=== PATIENT | female | born 1970 | race American Indian/Alaskan Native ===

== ENCOUNTER 2017-12-11 18:48 | Emergency (ER) | payer SELFPAY ==
[2017-12-11 19:31] VITALS: BP 130/85
--- NOTE | 2017-12-11 20:20 | Emergency Department Report ---
ED Extremity Problem HPI - General Chief complaint: Extremity Injury, Upper Stated complaint: LEFT SHOULDER PAIN Time Seen by Provider: 12/11/17 20:06 Source: patient Mode of arrival: Ambulatory Limitations: No Limitations - History of Present Illness Initial comments: Patient is a 47-year-old black female said 2-3 weeks of pain in the left shoulder. Patient states that she does not remember any trauma. Says progressively worse today hurts worse when she is moving. Patient states aching pain 8 out of 10 at its height. Patient denies any fevers chills nausea vomiting cough deformity at this time. - Related Data Previous Rx's Medication Instructions Recorded Last Taken Type Gentamicin 0.3% Ophth Soln 2 drops OP Q4H #1 bottle 04/23/14 Unknown Rx HYDROcodone/APAP 5-325 [[place] 1 each PO Q6HR PRN #12 tablet 12/11/17 Unknown Rx 5/325] Ibuprofen [Motrin] 800 mg PO Q8HR PRN #20 tablet 12/11/17 Unknown Rx methOCARBAMOL [Robaxin TAB] 500 mg PO Q6H PRN #15 tablet 12/11/17 Unknown Rx Allergies Allergy/AdvReac Type Severity Reaction Status Date / Time aspirin Allergy Vomiting Verified 04/23/14 18:20 ED Review of Systems ROS: Stated complaint: LEFT SHOULDER PAIN Other details as noted in HPI Comment: All other systems reviewed and negative ED Past Medical Hx - Past Medical History Previous Medical History?: Yes Hx Headaches / Migraines: Yes Additional medical history: denies - Surgical History Past Surgical History?: No - Social History Smoking Status: Current Every Day Smoker Substance Use Type: Alcohol, Marijuana - Medications Home Medications: Home Medications Medication Instructions Recorded Confirmed Last Taken Type Gentamicin 0.3% Ophth Soln 2 drops OP Q4H #1 bottle 04/23/14 Unknown Rx HYDROcodone/APAP 5-325 [[place] 1 each PO Q6HR PRN #12 tablet 12/11/17 Unknown Rx 5/325] Ibuprofen [Motrin] 800 mg PO Q8HR PRN #20 tablet 12/11/17 Unknown Rx methOCARBAMOL [Robaxin TAB] 500 mg PO Q6H PRN #15 tablet 12/11/17 Unknown Rx ED Physical Exam - General Limitations: No Limitations General appearance: alert, in no apparent distress - Head Head exam: Present: atraumatic, normocephalic - Eye Eye exam: Present: normal appearance - ENT ENT exam: Present: mucous membranes moist - Neck Neck exam: Present: normal inspection - Respiratory Respiratory exam: Present: normal lung sounds bilaterally. Absent: respiratory distress - Cardiovascular Cardiovascular Exam: Present: regular rate, normal rhythm. Absent: systolic murmur, diastolic murmur, rubs, gallop - GI/Abdominal GI/Abdominal exam: Present: soft, normal bowel sounds - Extremities Exam Extremities exam: Present: normal inspection. Absent: full ROM (decreased range of motion secondary to pain), tenderness - Back Exam Back exam: Present: normal inspection - Neurological Exam Neurological exam: Present: alert, oriented X3 - Psychiatric Psychiatric exam: Present: normal affect, normal mood - Skin Skin exam: Present: warm, dry, intact, normal color. Absent: rash ED Course Vital Signs 12/11/17 19:28 Temperature 98.7 F Pulse Rate 72 Respiratory 17 Rate Blood Pressure 130/85 O2 Sat by Pulse 100 Oximetry ED Medical Decision Making - Radiology Data Radiology results: image reviewed Within normal limits - Medical Decision Making Patient is a 47-year-old black female who is presenting with pain in her left shoulder. X-rays are within normal limits. Patient most likely has some pain strains of the rotator cuff she can remain in a sling, given pain meds and muscle relaxants and follow Dr. Rico orthopedics Critical care attestation.: If time is entered above; I have spent that time in minutes in the direct care of this critically ill patient, excluding procedure time. ED Disposition Clinical Impression: Rotator cuff disorder Qualifiers: Laterality: left Qualified Code(s): M67.912 - Unspecified disorder of synovium and tendon, left shoulder Disposition: - TO HOME OR SELFCARE Is pt being admited?: No Does the pt Need Aspirin: No Condition: Stable Instructions: Rotator Cuff Injury (ED), RICE Therapy (ED) Prescriptions: HYDROcodone/APAP 5-325 [[place] 5/325] 1 each PO Q6HR PRN #12 tablet PRN Reason: Pain Ibuprofen [Motrin] 800 mg PO Q8HR PRN #20 tablet PRN Reason: Pain methOCARBAMOL [Robaxin TAB] 500 mg PO Q6H PRN #15 tablet PRN Reason: Pain Referrals: PHYLLIS RICO MD [Staff Physician] - 3-5 Days
--- NOTE | 2017-12-11 21:54 | XRay Report ---
FINAL REPORT PROCEDURE: XR SHOULDER 2+V LT TECHNIQUE: Left shoulder, three views HISTORY: shoulder pain COMPARISON: No prior studies are available for comparison. FINDINGS: No acute fracture or dislocation is seen. No focal osseous lesion. IMPRESSION: No acute abnormality is identified
== END 2017-12-11 20:45 | disposition home or self-care (01) ==
LOC: ED 18:48
DX: M75.102 Unspecified rotator cuff tear or rupture of left shoulder, not specified as traumatic (principal); G43.909 Migraine, unspecified, not intractable, without status migrainosus; F17.200 Nicotine dependence, unspecified, uncomplicated; F12.10 Cannabis abuse, uncomplicated; Z88.6 Allergy status to analgesic agent
CPT/HCPCS: 99283

== ENCOUNTER 2018-05-31 00:01 | Emergency (ER) | payer SELFPAY ==
[2018-05-31 01:19] LABS: Basophils # (Auto) 0.1 K/mm3 (0.0-0.1); Basophils % (Auto) 0.8 % (0.0-1.8); Eosinophils # (Auto) 0.2 K/mm3 (0.0-0.4); Eosinophils % (Auto) 1.9 % (0.0-4.3); Hematocrit 41.8 % (30.3-42.9); Hemoglobin 14.2 gm/dl (10.1-14.3); Lymphocytes # (Auto) 1.6 K/mm3 (1.2-5.4); Lymphocytes % (Auto) 16.9 % (13.4-35.0); Mean Corpuscular HGB Conc 34 % (30-34); Mean Corpuscular Hemoglobin 32 pg (28-32); Mean Corpuscular Volume 93 fl (79-97); Monocytes # (Auto) 0.5 K/mm3 (0.0-0.8); Monocytes % (Auto) 5.5 % (0.0-7.3); Platelet Count 250 K/mm3 (140-440); Red Blood Count 4.52 M/mm3 (3.65-5.03); Red Cell Distribution Width 13.4 % (13.2-15.2)
[2018-05-31 01:38] LABS: Calcium 9.5 mg/dL (8.4-10.2)
--- NOTE | 2018-05-31 02:47 | XRay Report ---
FINAL REPORT EXAM: XR CHEST ROUTINE 2V HISTORY: Shortness of breath TECHNIQUE: 2 views of the chest. PRIORS: None. FINDINGS: The cardiomediastinal silhouette appears normal. The lungs are clear. The bones and soft tissues are unremarkable. IMPRESSION: No evidence of acute cardiopulmonary disease
[2018-05-31] MEDS ORDERED: MUCINEX ER PO ONE (04:16)
[2018-05-31] MEDS ORDERED: TESSALON PERLES PO ONE (04:16)
[2018-05-31] MEDS ORDERED: TYLENOL PO ONE (04:17)
[2018-05-31 05:42] VITALS: BP 121/86
--- NOTE | 2018-05-31 05:54 | Emergency Department Report ---
HPI - General Chief Complaint: Dyspnea/Respdistress Time Seen by Provider: 05/31/18 05:31 - HPI HPI: The patient is a 48-year-old female who presents for evaluation of cough and thoracic pain. The patient reports 2-3 days of a productive cough and generalized aching in quality pain to the back, moderate in severity, exacerbated with coughing. She also has secondary complaint of right eye redness and watery drainage also for the past 2 days. The patient denies fever, neck pain, trauma to the right eye, blurry vision, purulent drainage or discharge from the eye, nose, or ear, parasthesias, chest pain, dyspnea, hemoptysis, palpitations, dizziness, syncope, unilateral leg swelling, calf muscle pain. She admits to daily tobacco use. ED Past Medical Hx - Past Medical History Previous Medical History?: No Hx Headaches / Migraines: Yes Additional medical history: denies - Surgical History Past Surgical History?: No - Social History Smoking Status: Current Every Day Smoker Substance Use Type: None - Medications Home Medications: Home Medications Medication Instructions Recorded Confirmed Last Taken Type Gentamicin 0.3% Ophth Soln 2 drops OP Q4H #1 bottle 04/23/14 Unknown Rx HYDROcodone/APAP 5-325 [[place] 1 each PO Q6HR PRN #12 tablet 12/11/17 Unknown Rx 5/325] Ibuprofen [Motrin] 800 mg PO Q8HR PRN #20 tablet 12/11/17 Unknown Rx methOCARBAMOL [Robaxin TAB] 500 mg PO Q6H PRN #15 tablet 12/11/17 Unknown Rx ALBUTEROL Inhaler [ProAir HFA 2 puff IH QID PRN #1 inhalation 05/31/18 Unknown Rx Inhaler] Azithromycin [Zithromax Z-BENJAMIN] 250 mg PO QDAY #6 tablet 05/31/18 Unknown Rx Benzonatate [Tessalon Perles] 100 mg PO Q8HR #30 capsule 05/31/18 Unknown Rx Ibuprofen [Motrin] 800 mg PO Q8HR PRN #15 tablet 05/31/18 Unknown Rx guaiFENesin [Mucinex] 600 mg PO BID PRN #20 tab.er.12h 05/31/18 Unknown Rx traMADol [Ultram 50 MG tab] 50 mg PO Q6HR PRN #12 tablet 08/23/18 Unknown Rx ED Review of Systems ROS: Stated complaint: EYE INFECTION, BODY PAIN, CONGESTION Other details as noted in HPI Constitutional: denies: fever ENT: denies: throat or neck pain Respiratory: reports cough denies shortness of breath Cardiovascular: denies: chest pain Endocrine: denies unexplained weight loss or gain Gastrointestinal: denies: abdominal pain, nausea Genitourinary: denies: dysuria Musculoskeletal: denies: leg swelling Skin: denies: rash Neurological: denies: headache Hematological/Lymphatic: denies: easy bleeding or easy bruising Psych: denies sadness or hopelessness Physical Exam - Physical Exam Vital Signs: Vital Signs 05/31/18 05/31/18 05/31/18 00:12 00:56 05:42 Temperature 99.5 F 99.5 F 98 F Pulse Rate 101 H 101 H 105 H Respiratory 20 16 18 Rate Blood Pressure 135/94 135/94 Blood Pressure 121/86 [Left] O2 Sat by Pulse 96 97 98 Oximetry Physical Exam: General: well-nourished, well-developed, no acute distress Head: Normocephalic, atraumatic Eyes: conjunctival injection present to the right eye, EOMI, PERRL, no periorbital redness, swelling to my no proptosis, no exophthalmos, no pain with extraocular movements, no hypopyon or hyphema ENT: Mucous membranes are pale and dry Neck: trachea midline, neck supple, No neck stiffness, no cervical adenopathy Respiratory: Breath sounds equal bilaterally, no wheezing, rales, or rhonchi Cardio: S1 and S2 present, no murmurs, rubs, gallops, capillary refill is delayed Abdomen: Normoactive bowel sounds, soft abdomen, no rigidity, no guarding or rebound tenderness Chest WALL/Back: No tenderness to palpation of the chest wall, no CVA tenderness with percussion Musc: No midline cervical, thoracic or lumbar spinous process tenderness to palpation present, no spinous step-off or obvious deformity Skin: No rash Neuro: no facial drooping, normal speech Psych: Normal affect ED Course Vital Signs 05/31/18 05/31/18 05/31/18 00:12 00:56 05:42 Temperature 99.5 F 99.5 F 98 F Pulse Rate 101 H 101 H 105 H Respiratory 20 16 18 Rate Blood Pressure 135/94 135/94 Blood Pressure 121/86 [Left] O2 Sat by Pulse 96 97 98 Oximetry ED Medical Decision Making - Lab Data Result diagrams: 05/31/18 01:06 05/31/18 01:06 - Medical Decision Making The patient was seen and examined by myself. The patient is placed on a manager monitoring and continuous pulse ox. On initial evaluation, the patient was found to be in no distress. Evaluation orders were placed. EKG was negative for findings suggestive of acute cardiac infarct. The patient is given Tessalon Perles for their cough and Mucinex for nasal congestion. The patient is given Tylenol and Motrin for her pain, and a tablet of azithromycin for treatment of suspected bronchitis. Lab results were not concerning. Chest x- ray is negative for pulmonary vessel congestion, pleural effusion, focal consolidation, or other acute cardio pulmonary disease process. The patient was reevaluated and reported that their symptoms were improved. On reexamination the patient is found to have normal respiratory rate and O2 sat on pulse oximetry, with no costal retractions or diminishment of breath sounds on auscultation. The patient is stable for discharge with outpatient follow-up. The patient is given follow-up and return instructions. The patient expressed understanding and agreed with the plan. The patient is discharged in stable condition. Critical care attestation.: If time is entered above; I have spent that time in minutes in the direct care of this critically ill patient, excluding procedure time. ED Disposition Clinical Impression: Mild dehydration, Myalgia, Acute viral syndrome, Sang[place] eye disease of right eye Acute bronchitis Qualifiers: Bronchitis organism: unspecified organism Qualified Code(s): J20.9 - Acute bronchitis, unspecified Disposition: - TO HOME OR SELFCARE Is pt being admited?: No Does the pt Need Aspirin: No Condition: Stable Instructions: Acute Bronchitis (ED), Conjunctivitis (ED), Musculoskeletal Pain (ED) Referrals: PRIMARY CARE, [Primary Care Provider] - 3-5 Days [facility] [Outside] - 3-5 Days Time of Disposition: 05:58
[2018-05-31] MEDS ORDERED: ZITHROMAX PO ONE (05:59)
[2018-05-31] MEDS ORDERED: MOTRIN PO ONE (05:59)
== END 2018-05-31 06:28 | disposition home or self-care (01) ==
LOC: ED 00:01
DX: J20.9 Acute bronchitis, unspecified (principal); B34.9 Viral infection, unspecified; E86.0 Dehydration; H10.021 Other mucopurulent conjunctivitis, right eye; G43.909 Migraine, unspecified, not intractable, without status migrainosus; F17.200 Nicotine dependence, unspecified, uncomplicated; Z88.6 Allergy status to analgesic agent
CPT/HCPCS: 36415; 71046; 80048; 85025; 93005; 93010; 99284

== ENCOUNTER 2019-11-18 14:48 | Emergency (ER) | payer SELFPAY ==
[2019-11-18 15:05] VITALS: BP 158/104
--- NOTE | 2019-11-18 15:14 | Emergency Department Report ---
Blank Doc - Documentation Documentation: 49-year-old female that presents with SOB, dizziness, and tingling body aches. Denies any CP. This initial assessment/diagnostic orders/clinical plan/treatment(s) is/are subject to change based on patient's health status, clinical progression and re- assessment by fellow clinical providers in the ED. Further treatment and workup at subsequent clinical providers discretion. Patient/guardians urged not to elope from the ED as their condition may be serious if not clinically assessed and managed. Initial orders include: 1- Patient sent to [facility] for further evaluation and treatment 2- labs 3- EKG 4- CXR
[2019-11-18 15:57] LABS: Mean Corpuscular HGB Conc 34 % (30-34); Mean Corpuscular Volume 93 fl (79-97); Platelet Count 235 K/mm3 (140-440); Red Blood Count 4.42 M/mm3 (3.65-5.03); Red Cell Distribution Width 13.5 % (13.2-15.2)
[2019-11-18 16:06] LABS: INR 0.94 (0.87-1.13)
[2019-11-18 16:07] LABS: Partial Thromboplastin Time 25.9 Sec. (24.2-36.6)
[2019-11-18 16:17] LABS: Alanine Aminotransferase 38 units/L (7-56); Albumin 4.4 g/dL (3.9-5); BUN/Creatinine Ratio 12; Blood Urea Nitrogen 15 mg/dL (7-17); Calcium 9.6 mg/dL (8.4-10.2); Hemolysis Index 47
--- NOTE | 2019-11-18 16:38 | XRay Report ---
CHEST 2 VIEWS INDICATION / CLINICAL INFORMATION: Chest Pain. COMPARISON: 05/31/2018 FINDINGS: SUPPORT DEVICES: None. HEART / MEDIASTINUM: No significant abnormality. LUNGS / PLEURA: No significant pulmonary or pleural abnormality. .No pneumothorax. ADDITIONAL FINDINGS: No significant additional findings. IMPRESSION: 1. No acute findings. Signer Name: Tomi Tatum MD Signed: 11/18/2019 4:34 PM Workstation Name: [id number]
[2019-11-18 17:14] LABS: RBC Morphology Normal; Total Cells Counted 100
[2019-11-18] MEDS ORDERED: methylPREDNISolone Sod Succinate 125 MG/2 ML INJ IV ONE (20:05)
[2019-11-18] MEDS ORDERED: SODIUM CHLORIDE 0.9% 1000 ML 1,000 ML IV ONE (20:05)
[2019-11-18] MEDS ORDERED: IPRATROPIUM/ALBUTEROL SULFATE 3 ML AMPUL.NEB IH ONE (20:05)
[2019-11-18 21:46] LABS: Bilirubin,Urine NEG (Negative); Blood,Urine NEG (Negative); Color,Urine Yellow (Yellow); Mucus,Urine FEW /HPF; Protein,Urine <15 mg/dL mg/dL (Negative); Urobilinogen,Urine < 2.0 mg/dL (<2.0)
--- NOTE | 2019-11-18 23:20 | Cat Scan Report ---
CTA of the chest with 3D Reconstruction Indication: ,chest pain, dyspnea Technique: TECHNIQUE: Axial CT images were obtained through the chest after injection of 80 cc of Omnipaque 350 IV contrast. 3 plane MIP reconstructions were produced. All CT scans at this location are performed u sing CT dose reduction for ALARA by means of automated exposure control. COMPARISON: None Automatic exposure control was utilized in an attempt to reduce radiation dose. Findings: Pulmonary arteries: The main pulmonary artery and right and left pulmonary artery branches fill satis factorily with contrast. No pulmonary embolus is seen. Lungs: The lungs are clear. Mediastinum: Heart size is normal. No adenopathy is seen. Aorta: Normal in diameter. No dissection seen within limits of this exam. Impression: No pulmonary embolus is seen Signer Name: Tomi Tatum MD Signed: 11/18/2019 11:15 PM Workstation Name: [id number]
--- NOTE | 2019-11-18 23:54 | Emergency Department Report ---
ED General Adult HPI - General Chief complaint: Dyspnea/Respdistress Stated complaint: SOB FAINTNESS Time Seen by Provider: 11/18/19 15:12 Source: patient Mode of arrival: Ambulatory Limitations: No Limitations - History of Present Illness Initial comments: Patient is a 49-year-old -[place] female with past medical history of chronic migraine headaches who presents to the ED with complaint of acute onset persistent nasal and sinus congestion, frontal sinus pressure, lightheadedness, shortness of breath, generalized weakness and fatigue with persistent dry cough and pleuritic chest wall pain for the last 2 days. Patient denies fever, chill s, nausea, vomiting, diarrhea, abdominal pain, dizziness, change in vision, sore throat or syncope and palpitations. MD Complaint: generalized weakness; lightheadedness; dyspnea; frontal sinus pressure -: Sudden, days(s) (2) Location: head, chest Radiation: non-radiation Severity scale (0 -10): 4 Quality: other (pressure) Consistency: intermittent Improves with: none Worsens with: movement Associated Symptoms: denies other symptoms, chest pain (pressure), cough, shortness of breath. denies: confusion, diaphoresis, fever/chills, headaches, loss of appetite, malaise, nausea/vomiting, seizure, syncope, weakness Treatments Prior to Arrival: none - Related Data Previous Rx's Medication Instructions Recorded Last Taken Type Gentamicin 0.3% Ophth Soln 2 drops OP Q4H #1 bottle 04/23/14 Unknown Rx HYDROcodone/APAP 5-325 [[place] 1 each PO Q6HR PRN #12 tablet 12/11/17 Unknown Rx 5/325] Ibuprofen [Motrin] 800 mg PO Q8HR PRN #20 tablet 12/11/17 Unknown Rx methOCARBAMOL [Robaxin TAB] 500 mg PO Q6H PRN #15 tablet 12/11/17 Unknown Rx Albuterol INH(or & Nicu Only) 2 puff IH QID PRN #1 inhalation 05/31/18 Unknown Rx [ProAir HFA Inhaler] Azithromycin [Zithromax Z-BENJAMIN] 250 mg PO QDAY #6 tablet 05/31/18 Unknown Rx Benzonatate [Tessalon Perles] 100 mg PO Q8HR #30 capsule 05/31/18 Unknown Rx Ibuprofen [Motrin] 800 mg PO Q8HR PRN #15 tablet 05/31/18 Unknown Rx Ofloxacin [Ocuflox 0.3%] 1 - 2 drop OP QID #1 bottle 05/31/18 Unknown Rx guaiFENesin [Mucinex] 600 mg PO BID PRN #20 tab.er.12h 05/31/18 Unknown Rx levoFLOXacin [Levaquin TAB] 500 mg PO QDAY #10 tablet 05/31/18 Unknown Rx traMADoL [Ultram 50 MG tab] 50 mg PO Q6HR PRN #12 tablet 05/31/18 Unknown Rx Albuterol INH(or & Nicu Only) 1 - 2 puff IH Q6H PRN #1 inh 11/18/19 Unknown Rx [ProAir HFA Inhaler] Doxycycline Hyclate 100 mg PO Q12H #20 tablet.dr 11/18/19 Unknown Rx hydrOXYzine HCL [Atarax] 25 mg PO Q6HR PRN #30 tablet 11/18/19 Unknown Rx methylPREDNISolone [Medrol 4MG 4 mg PO DAILY #21 tab.ds.pk 11/18/19 Unknown Rx DOSEPAK (21 tabs)] Allergies Allergy/AdvReac Type Severity Reaction Status Date / Time aspirin Allergy Vomiting Verified 04/23/14 18:20 ED Review of Systems ROS: Stated complaint: SOB FAINTNESS Other details as noted in HPI Constitutional: malaise, weakness. denies: chills, fever Eyes: denies: eye pain, eye discharge, vision change ENT: congestion, other (Sinus pressure). denies: ear pain, throat pain Respiratory: cough, shortness of breath. denies: wheezing Cardiovascular: chest pain (Pleuritic chest pain). denies: palpitations, dy spnea on exertion, syncope, paroxysmal nocturnal dyspnea Endocrine: no symptoms reported Gastrointestinal: denies: abdominal pain, nausea, vomiting, diarrhea Genitourinary: denies: urgency, dysuria, discharge Musculoskeletal: myalgia. denies: back pain, joint swelling, arthralgia Skin: denies: rash, lesions Neurological: headache. denies: weakness, paresthesias Psychiatric: denies: anxiety, depression Hematological/Lymphatic: denies: easy bleeding, easy bruising ED Past Medical Hx - Past Medical History Hx Headaches / Migraines: Yes Additional medical history: denies - Social History Smoking Status: Never Smoker Substance Use Type: None - Medications Home Medications: Home Medications Medication Instructions Recorded Confirmed Last Taken Type Gentamicin 0.3% Ophth Soln 2 drops OP Q4H #1 bottle 04/23/14 Unknown Rx HYDROcodone/APAP 5-325 [[place] 1 each PO Q6HR PRN #12 tablet 12/11/17 Unknown Rx 5/325] Ibuprofen [Motrin] 800 mg PO Q8HR PRN #20 tablet 12/11/17 Unknown Rx methOCARBAMOL [Robaxin TAB] 500 mg PO Q6H PRN #15 tablet 12/11/17 Unknown Rx Albuterol INH(or & Nicu Only) 2 puff IH QID PRN #1 inhalation 05/31/18 Unknown Rx [ProAir HFA Inhaler] Azithromycin [Zithromax Z-BENJAMIN] 250 mg PO QDAY #6 tablet 05/31/18 Unknown Rx Benzonatate [Tessalon Perles] 100 mg PO Q8HR #30 capsule 05/31/18 Unknown Rx Ibuprofen [Motrin] 800 mg PO Q8HR PRN #15 tablet 05/31/18 Unknown Rx Ofloxacin [Ocuflox 0.3%] 1 - 2 drop OP QID #1 bottle 05/31/18 Unknown Rx guaiFENesin [Mucinex] 600 mg PO BID PRN #20 tab.er.12h 05/31/18 Unknown Rx levoFLOXacin [Levaquin TAB] 500 mg PO QDAY #10 tablet 05/31/18 Unknown Rx traMADoL [Ultram 50 MG tab] 50 mg PO Q6HR PRN #12 tablet 05/31/18 Unknown Rx Albuterol INH(or & Nicu Only) 1 - 2 puff IH Q6H PRN #1 inh 11/18/19 Unknown Rx [ProAir HFA Inhaler] Doxycycline Hyclate 100 mg PO Q12H #20 tablet.dr 11/18/19 Unknown Rx hydrOXYzine HCL [Atarax] 25 mg PO Q6HR PRN #30 tablet 11/18/19 Unknown Rx methylPREDNISolone [Medrol 4MG 4 mg PO DAILY #21 tab.ds.pk 11/18/19 Unknown Rx DOSEPAK (21 tabs)] ED Physical Exam - General Limitations: No Limitations General appearance: alert, in no apparent distress - Head Head exam: Present: atraumatic, normocephalic, normal inspection - Eye Eye exam: Present: normal appearance, PERRL, EOMI Pupils: Present: normal accommodation - ENT ENT exam: Present: normal orophraynx, mucous membranes moist, TM's normal bilaterally, normal external ear exam, other (Palpable frontal sinus pressure; grossly congested nasal passages) - Neck Neck exam: Present: normal inspection, full ROM - Respiratory Respiratory exam: Present: wheezes (Mild scattered wheezes throughout). Absent: respiratory distress, rhonchi, stridor, chest wall tenderness, accessory muscle use, decreased breath sounds - Cardiovascular Cardiovascular Exam: Present: normal rhythm, tachycardia, normal heart sounds. Absent: systolic murmur, diastolic murmur, rubs, gallop - GI/Abdominal GI/Abdominal exam: Present: soft, normal bowel sounds. Absent: tenderness, guarding, hyperactive bowel sounds, hypoactive bowel sounds, mass - Extremities Exam Extremities exam: Present: normal inspection, full ROM, normal capillary refill - Back Exam Back exam: Present: normal inspection, full ROM. Absent: tenderness, CVA tenderness (L), muscle spasm, paraspinal tenderness, vertebral tenderness - Neurological Exam Neurological exam: Present: alert, oriented X3, CN II-XII intact, normal gait, reflexes normal - Psychiatric Psychiatric exam: Present: normal affect, normal mood, anxious - Skin Skin exam: Present: warm, dry, intact, normal color. Absent: rash ED Course Vital Signs 11/18/19 11/18/19 11/19/19 15:03 15:18 00:18 Temperature 98.7 F 98.9 F Pulse Rate 99 H 80 67 Respiratory 26 H 24 17 Rate Blood Pressure 158/104 Blood Pressure 158/104 [Right] O2 Sat by Pulse 96 99 97 Oximetry ED Medical Decision Making - Lab Data Result diagrams: 11/18/19 15:40 11/18/19 15:40 - EKG Data EKG shows normal: sinus rhythm Rate: normal - EKG Data Interpretation: normal EKG - Radiology Data Radiology results: report reviewed, image reviewed Findings [facility] [address] [place] [address] Cat Scan Report Signed Patient: SANDOVAL RODRIGUES MR#: [id number] : 1970 Acct:[id number] Age/Sex: 49 / F ADM Date: 11/18/19 Loc: ED Attending Dr: Ordering Physician: MARSHALL CARR Date of Service: 11/18/19 Procedure(s): CT angio chest Accession Number(s): [id number] cc: MARSHALL CARR CTA of the chest with 3D Reconstruction Indication: ,chest pain, dyspnea Technique: TECHNIQUE: Axial CT images were obtained through the chest after injection of 80 cc of Omnipaque 350 IV contrast. 3 plane MIP reconstructions were produced. All CT scans at this location are performed using CT dose reduction for ALARA by means of automated exposure control. COMPARISON: None Automatic exposure control was utilized in an attempt to reduce radiation dose. Findings: Pulmonary arteries: The main pulmonary artery and right and left pulmonary artery branches fill satisfactorily with contrast. No pulmonary embolus is seen. Lungs: The lungs are clear. Mediastinum: Heart size is normal. No adenopathy is seen. Aorta: Normal in diameter. No dissection seen within limits of this exam. Impression: No pulmonary embolus is seen Signer Name: Tomi Tatum MD Signed: 11/18/2019 11:15 PM Workstation Name: [id number] Transcribed By: SS Dictated By: Tomi Tatum MD Electronically Authenticated By: Tomi Tatum MD Signed Date/Time: 11/18/192314 DD/ 09 TD/TT: Chest x-ray shows no acute cardiopulmonary abnormalities or pneumonitis, pleural effusion or pneumothorax. - Medical Decision Making This is a 49-year-old female with past medical history of chronic migraine headaches who presents to the ED with complaint of acute onset persistent nasal and sinus congestion, frontal sinus pressure, lightheadedness, shortness of breath, generalized weakness and fatigue with persistent dry cough and pleuritic chest wall pain for the last 2 days. In the ED, patient is alert and oriented x3 and is not in any distress. Lab test results were reviewed and shows d-dimer of 282.25 and creatinine of 1.3. Chest x-ray shows no acute cardiopulmonary abnormalities or pneumonitis, pleural effusion or pneumothorax. Chest CTA shows no evidence of PE or pneumonia or any other cardiopulmonary abnormalities. Patient was treated in the ED with normal saline 1 L IV bolus, also received DuoNeb treatment and Solu-Medrol as well as pain medications. On reevaluation, patient felt better and was discharged home on medications and advised to follow-up with her primary care physician in 5 to 7 days for reevaluation. Patient was however advised return to the ED immediately if symptoms get worse. - Differential Diagnosis Pneumonia; PE; CAD; Sinusitis; URI; Bronchitis; Dehydration Critical care attestation.: If time is entered above; I have spent that time in minutes in the direct care of this critically ill patient, excluding procedure time. ED Disposition Clinical Impression: Episodic lightheadedness, Dehydration symptoms, Shortness of breath, Anxiety as acute reaction to exceptional stress Chronic sinusitis Qualifiers: Sinusitis location: unspecified location Qualified Code(s): J32.9 - Chronic sinusitis, unspecified Disposition: DC-01 TO HOME OR SELFCARE Is pt being admited?: No Does the pt Need Aspirin: No Condition: Stable Instructions: Generalized Anxiety Disorder (ED), Dyspnea (ED), Lightheadedness (ED) Additional Instructions: Your symptoms are likely due to anxiety, dehydration as well as chronic sinus infections. Lab test results and imaging tests performed during this visit are all normal with no acute pathology identified. Therefore take the medications prescribed, drink plenty of fluids and follow-up with your primary care physician in 5 to 7 days for reevaluation or return to the ED immediately if symptoms get worse. Consider quitting tobacco smoking habit. Prescriptions: hydrOXYzine HCL [Atarax] 25 mg PO Q6HR PRN #30 tablet PRN Reason: Anxiety Doxycycline Hyclate 100 mg PO Q12H #20 tablet. methylPREDNISolone [Medrol 4MG DOSEPAK (21 tabs)] 4 mg PO DAILY #21 tab.ds.pk Albuterol INH(or & Nicu Only) [ProAir HFA Inhaler] 1 - 2 puff IH Q6H PRN #1 inh PRN Reason: Dyspnea Referrals: WEST GUZMAN MD [Staff Physician] - 3-5 Days Forms: Work/School Release Form(ED) Time of Disposition: 23:52 Print Language: GUAMANIAN
== END 2019-11-19 00:17 | disposition home or self-care (01) ==
LOC: ED 14:48
DX: J32.9 Chronic sinusitis, unspecified (principal); R42 Dizziness and giddiness; F41.8 Other specified anxiety disorders; G43.909 Migraine, unspecified, not intractable, without status migrainosus; Z88.6 Allergy status to analgesic agent; Z79.899 Other long term (current) drug therapy
CPT/HCPCS: 36415; 71046; 71275; 80053; 81001; 84484; 84703; 85007; 85025; 85379; 85610; 85730; 93005; 93010; 96361; 96374; 99285; J2930; J7030; Q9967